=== PATIENT | female | born 1955 | race Caucasian/White ===

== ENCOUNTER 2023-01-02 08:49 | Emergency (ER) | payer MEDICARE, OTHER ==
[2023-01-02 09:16] VITALS: BP 141/108
--- NOTE | 2023-01-02 11:15 | ED Physician Documentation ---
History of Present Illness - Stated complaint Stated Complaint: RT LEG PX - Chief complaint Chief Complaint: Ext Problem - History obtained from History obtained from: Patient - Additonal information Additional information: The patient comes to the emergency department chief complaint of right knee pain and swelling after a long trip. She is concerned about possible DVT. She states that her father had DVTs in she is concerned that she may be prone to this. The patient states she driven from [place] and 2 days later, went for a walk. She began to notice that her right knee was painful and swollen, especially behind the knee. She states it persisted for the next few days and that the knee is still swollen. She states the pain is gone down somewhat. She denies any chest pain or shortness of breath. She has had symptoms for a total of 5 days now. PD PAST MEDICAL HISTORY - Allergies Allergies/Adverse Reactions: Allergies Allergy/AdvReac Type Severity Reaction Status Date / Time ciprofloxacin [From Cipro] Allergy Unknown Verified 01/02/23 09:09 Penicillins Allergy Hives Verified 01/02/23 09:08 Sulfa (Sulfonamide Allergy Hives Verified 01/02/23 09:08 Antibiotics) PD ED PE NORMAL - Vitals Vital signs reviewed: Yes - General General: Alert and oriented X 3, No acute distress, Well developed/nourished - HEENT HEENT: Atraumatic, PERRL, EOMI, Moist mucous membranes - Neck Neck: Supple, no meningeal sign - Cardiac Cardiac: Strong equal pulses - Respiratory Respiratory: No respiratory distress - Derm Derm: Normal color, Warm and dry, No rash - Extremities Extremities: No deformity, Normal ROM s pain, No calf tenderness / cord, Other (Full range of motion right knee. Moderate edema medially with some mild tenderness in the popliteal fossa area.) - Neuro Neuro: Alert and oriented X 3, No motor deficit, No sensory deficit - Psych Psych: Normal mood, Normal affect Results - Vitals Vitals: Vital Signs - 24 hr 01/02/23 09:05 Temperature 36.4 C L Heart Rate 74 Respiratory 20 Rate Blood Pressure 141/108 H O2 Saturation 100 Oxygen O2 Source Room air - Rads (name of study) Duplex ultrasound right lower extremity Relevant Findings:: Final report received, See rad report (Negative) PD Medical Decision Making - ED course Complexity details: reviewed results, re-evaluated patient, considered differential, d/w patient ED course: The patient's ultrasound did not show any evidence of a DVT. I offered x-ray but she stated at this point she would rather just see if the flareup goes down on its own. She states she would like to just take ibuprofen at home and continue to use ice and elevation to help with symptoms. We have discussed indications for follow-up and return. Departure - Departure Disposition: 01 Home, Self Care Clinical Impression: Knee pain Qualifiers: Chronicity: acute Laterality: right Qualified Code(s): M25.561 - Pain in right knee Condition: Stable Instructions: ED Knee Pain [facility] Comments: Your ultrasound looks greatno evidence of a blood clot. You most likely have a flareup of your knee just from some new onset of the activity that you did on Thursday and Thursday. It may be that your knee was more prone to flareup because you had just spent a lot of time with it fairly immobile in the car. What ever the case, at this point in time you can continue to do ice, ibuprofen, and elevation. Please follow with your primary doctor as needed.
--- NOTE | 2023-01-02 12:09 | Ultrasound Report ---
PROCEDURE: Duplex Ext Veins Right INDICATIONS: leg pain after traveling TECHNIQUE: Real-time imaging, as well as color and pulse Doppler interrogation, were performed of the lower extr emity deep veins from the inguinal ligament to the popliteal fossa. COMPARISON: None. FINDINGS: The deep veins are normally compressible, and free of intraluminal thrombus. Color and pu lse Doppler demonstrate normal phasic intraluminal flow. There is normal augmentation response to di stal compression maneuver. Anechoic fluid collection is noted in the area of swelling posterior medial to the knee measuring 4.2 x 2.3 x 1.3 cm. IMPRESSION: 1.No sonographic evidence of deep venous thrombosis in the right lower extremity. 2.Nonspecific fluid collection posterior medial to the knee may represent a Jauregui's cyst. Reviewed by: Alpesh Childress MD on 01/02/2023 12:08 PM PDT Approved by: Alpesh Childress MD on 01/02/2023 12:08 PM PDT Station ID: [id number]
== END 2023-01-02 11:17 | disposition home or self-care (01) ==
LOC: ED 08:49
DX: M25.561 Pain in right knee (principal)
CPT/HCPCS: 99283; 99284

== ENCOUNTER 2023-10-27 14:09 | Outpatient (CLI) | payer MEDICARE, OTHER ==
--- NOTE | 2023-10-29 07:38 | Mammography Report ---
BILATERAL DIGITAL SCREENING MAMMOGRAM 3D/2D: 10/27/2023 CLINICAL: Routine screening. Comparison is made to exams dated: 04/25/2022 mammogram, 06/27/2019 mammogram, and 08/14/2017 mammogram - [facility]. Both breasts are heterogeneously dense, which may obscure small masses (category c / 51-75% glandular tissue). There are benign calcifications in the left breast. No significant masses, calcifications, or other findings are seen in either breast. There has been no significant interval change. IMPRESSION: BENIGN There is no mammographic evidence of malignancy. A 1 year screening mammogram is recommended. Based on the Tyrer Cuzick model (a risk assessment model) the patient's lifetime risk is 10.5% and he r 10 year risk is 5.3%. According to the ACR, ACS, and NCCN guidelines, an annual breast MRI exam marilyn ng with mammogram is recommended if the patient's lifetime risk is 20% or greater. This exam was interpreted at Station ID: [id number]. NOTE: For mammograms, a report in lay terms will be sent to the patient. Approximately 15% of breast malignancies will not be visualized mammographically. In the management of a palpable breast mass, a negative mammogram must not discourage biopsy of a clinically suspicious lesion. Electronically Signed By: Austin hallman/josé antonio:10/28/2023 09:49:04 letter sent: No_Letter ACR BI-RADS Category 2: Benign Finding(s) 3342F PARENCHYMAL PATTERN: (D) - The breast(s) demonstrate(s) heterogeneously dense fibroglandular ori browning. BI-RADS CATEGORY: (2) - 2 RECOMMENDATION: (ANNUAL) - Recommend routine annual screening mammography. [id number] 1 year screening LATERALITY: (B)
== END 2023-10-27 14:10 | disposition home or self-care (01) ==
LOC: DI.S 14:09
DX: Z12.31 Encounter for screening mammogram for malignant neoplasm of breast (principal); R92.333 Mammographic heterogeneous density, bilateral breasts